=== PATIENT | female | born 2000 | race Caucasian/White ===

== ENCOUNTER 2025-07-15 09:32 | Outpatient (AMB) | payer OTHER, SELFPAY ==
--- OUTSIDE RECORDS SUMMARY | 2025-07-15 09:34 | XMS_ITS | Clinical Summary ---
Author Organization [facility] Address [address] [place] [address] Care Team Providers Care Md Pediatric Allergist Name Role Phone María Deng PA-C Primary Care Provider Source Comments PLEASE NOTE, if this patient is a minor, it may be UNLAWFUL to discuss sensitive information that is contained in these records (such as FAMILY PLANNING, MENTAL HEALTH or SUBSTANCE ABUSE) with the minor patient's parent or other person without the patient's specific authorization.[facility] Allergies No known active allergies Medications PNV no.159/iron/foli c acid ( VITAMIN ORAL) Take by mouth. Active Active Problems Problem Noted Date Diagnosed Date Cervical cancer screening 02/06/2025 Overview (02/06/2025): Pap 09/2021 negative Family History Medical History Relation Name Comments No Known Problems Daughter No Known Problems Mother Relation Name Status Comments Brother 1 Alive Brother 2 Alive Daughter Alive Father Mother Alive Social History Tobacco Use Types Packs/Day Years Used Date Smoking Tobacco: Never Smokeless Tobacco: Never Tobacco Cessation:Counseling Given: Not Answered Alcohol Use Standard Drinks/Week Comments Not Currently 0 (1 standard drink = 0.6 oz pur e alcohol) occasionally Social Connections Answer Date Recorded Connectedness 0 07/07/2024 Financial Resource Strain Answer Date R ecorded Financial Resource Strain 0 2020 Stress Answer Date Recorded Stress 0 08/29/2021 Physical Activity Answer Date Recorded Physical Activity 0 08/29/2021 Food Insecurity Answer Date Recorded Food 0 07/21/2024 Transportation Needs Answer Date Record ed Transportation 0 08/29/2021 Housing Stability Answer Date Recorded Housing 0 08/29/2021 Safety and Environment Answer Date Sherif rded Safety 0 08/29/2021 Utilities Answer Date Recorded Utilities 0 08/29/2021 Employment Answer Date Recorded Stress 0 07/07/2024 Comments Unknown Sex and Gender Information Value Date Recorded Sex Assigned at Female 08/29/2021 12:29 PM PDT Legal Sex Female 10:55 AM PDT Gender Identity Female 08/29/2021 12:29 PM PDT Sexual Orientation Straight 08/29/2021 12 :29 PM PDT Last Filed Vital Signs Vital Sign Reading Time Taken Comments Blood Pressure 117/68 03/28/2025 2:33 PM EDT Pulse 60 03/28/2025 2:33 PM EDT Temperature 37.2 C (99 F) 03/16/2025 3:46 PM EDT Respiratory Rate 16 03/28/2025 2:33 PM EDT Oxygen Saturation 100% 03/28/2025 2:33 PM EDT Inhaled Oxygen Concentration - - Weight 59.4 kg (131 lb) 03/28/2025 2:33 PM EDT Height 165.1 cm (5' 5 ) 03/16/2025 3:46 PM EDT Body Mass Index 21.8 03/16/2025 3:46 PM EDT Plan of Treatment Health Maintenance Due Date Last Done Comments HPV Screening 2000 Relationship Safety Screening/Counseling 2015 [id number] ( season) 2025 Imm-Influenza (#1) 2025 08/12/2013, 1 11/20/2011, 10/02/2011, Additional history exists Annual Wellness (Adult): Indicated (All Coverage) 03/16/2026 03/16/2025 Anxiety Screening 03/16/2026 03/16/2025 Tobacco Screening 03/16/2026 03/16/2025 Hypertension Screening (#1) 03/27/2028 Pap Smear 03/28/2028 03/28/2025 Cervical Cancer Screening 03/28/2030 Pap + HPV 03/28/2030 03/28/2025 Imm-DTaP/Tdap/Td (6 - Td or Tdap) 02/07/2032 02/06/2022, 07/13/2005, 2000, Additional history exists Imm-Varicella Completed 07/05/2008, 07/03/2005 Imm-HPV Completed 09/20/2012, 11/26, 10/02/2011 Alcohol and Drug Screen Completed 03/16/2025, 08/29 Depression Annual Screen Completed 03/16/2025 HIV Screening Completed 03/16/2025 Hepatitis C Screening Completed 03/16/2025 Cervical Ablation/Cold-Knife Conization Discontinued Cervical Cryotherapy Discontinued Colposcopy Discontinued Endometrial Biopsy Discontinued Excision/Leep Discontinued HPV Genotyping Discontinued Imm-Hepatitis B Discontinued Vaginal Pap Discontinued Vulvoscopy Discontinued Procedures Procedure Name Priority Date/Time Associated Diagnosis Comments THINPREP IMAGING PAP, HPV MRNA E6/E7 RFLEX HPV 16,18/45 CT/NG Routine 03/28/2025 1:53 PM EDT Screening for HPV (human papillomavirus) HIV 1/2 AG & AB W/RFLX (4TH GEN) Routine 03/16/2025 4:20 PM EDT Routine adult health maintenance HEPATITIS C AB W/RFLX HCV RNA, QT, RT PCR Routine 03/16/2025 4:20 PM EDT Routine adult health maintenance from Last 3 Months or Most Recently Relevant to Health Maintenance Results * (ABNORMAL) THINPREP IMAGING PAP, HPV MRNA E6/E7 RFLEX HPV 16,18/45 CT/NG Cervical Swab Routine (03/28/2025 1:53 PM EDT) CHLAMYDIA TRACHOMATIS RNA, TMA NOT DETECTED NOT DETECTED [employer] NEISSERIA GONORRHOEAE RNA, TMA NOT DETECTED NOT DETECTED [employer] COMMENT [employer] CLINICAL INFORMATION See Note [employer] Comment:None given LMP See Note [employer] Comment:NONE GIVEN PREV. PAP See Note [employer] Comment:NONE GIVEN PREV. BX See Note [employer] Comment:NONE GIVEN SOURCE See Note [employer] Comment:Cervix STATEMENT OF ADEQUACY See Note [employer] Comment: Satisfactory for evaluation. Endocervical/transformation zone component present. GENERAL CATEGORIZATION See Note(A) [employer] Comment:Cytology Results: Ep ithelial Cell Abnormality INTERPRETATION/RESU LT See Note(A) [employer] Comment: Atypical Squamous Cells of Undetermined Significance (ASC-US) COMMENT See Note [employer] Comment: This case could not be evaluated with computer assisted technology. The slide was manually screened according to routine procedures. FLUORESCENT LIGHTING MODEL MAKER See Note NHUNG [place] Comment: WAC, CT(ASCP) CT screening location: [address] [address] PATHOLOGIST See Note [employer] Comment: Shabnam Vivas D.O. Board Certified in Anatomic, Clinical and Cytopathology (electronic signature) Consulting Pathologist [facility] [address] [place] [id number] Pathologist Release Date/Time: 04/04/2025 02:24PM COMMENT [employer] HPV MRNA E6/E7 Detected(A ) Not Detected [employer] Comment: Methodology: Chemical Plant Operator-Mediated Amplification This assay detects E6/E7 viral messenger RNA (mRNA) from 14 high-risk HPV types (16,18,31,33,35,39,45,51,52,56,58,59,66,68). Cervical sources are required for HPV testing. If a vaginal source from a patient who has had a total hysterectomy with removal of cervix was submitted, please contact the testing laboratory for alternative testing options. For additional information, please refer to http://[employer]Rocket/faq/UYV606k6 (This link if provided for information/ educational purposes only.) Swab Cervix uteri structure / Unknown 03/28/2025 1:53 PM EDT 03/29/2025 6:46 AM EDT Narrative Wylio - 04/04/2025 2:59 PM EDT EXPLANATORY NOTE: The Pap is a screening test for cervical cancer. It is not a diagnostic test and is subject to false negative and false positive results. It is most reliable when a satisfactory sample, regularly obtained, is submitted with relevant clinical findings and history, and when the Pap result is evaluated along with historic and current clinical information. The analytical performance characteristics of this assay, when used to test SurePath(TM) specimens have been determined by [employer]. The modifications have not been cleared or approved by the FDA. This assay has been validated pursuant to the CLIA regulations and is used for clinical purposes. For additional information, please refer to https://[employer]Rocket/faq/SID091 (This link is being provided for information/ educational purposes only.) William Fragoso MD LAB - PATHOLOGY AND CYTOLOGY AM BULATORY Final Result Performing Organization Address [facility]/ZIP Co de Phone Number [facility] [address] [address], [facility] [address] [phone] * HEPATITIS C AB W/RFLX HCV RNA, QT, RT PCR Routine (03/16/2025 4:20 PM EDT) HEPATITIS C ANTIBODY NON-REACT SHAKIRA NON-REACT SHAKIRA [facility] Comment: HCV antibody was non-reactive. There is no laboratory evidence of HCV infection. In most cases, no further action is required. However, if recent HCV exposure is suspected, a test for HCV RNA (test code 67280) is suggested. For additional information please refer to http://[employer]ocket/faq/YSD71v5 (This link is being provided for informational/ educational purposes only.) Blood Blood / Unknown 03/16/2025 4 :20 PM EDT 03/16/2025 4:20 PM EDT Kellie Huntley NP LAB - BLOOD DRAW Edited Result - Final Performing Organization Address [facility] Co de Phone Number [facility] [address] [address], [facility] [address] [phone] * HIV 1/2 AG & AB W/RFLX (4TH GEN) Routine (03/16/2025 4:20 PM EDT) HIV AG/AB, 4TH GEN NON-REAC TIVE NON-REAC TIVE [facility] Comment: HIV-1 antigen and HIV-1/HIV-2 antibodies were not detected. There is no laboratory evidence of HIV infection. PLEASE NOTE: This information has been disclosed to you from records whose confidentiality may be protected by state law. If your state requires such protection, then the state law prohibits you from making any further disclosure of the information without the specific written consent of the person to whom it pertains, or as otherwise permitted by law. A general authorization for the release of medical or other information is NOT sufficient for this purpose. For additional information please refer to http://education.[employer]/faq/QBW002 (This link is being provided for informational/ educational purposes only.) The performance of this assay has not been clinically validated in patients less than 2 years old. Blood Blood / Unknown 03/16/2025 4 :20 PM EDT 03/16/2025 4:20 PM EDT us Kellie Huntley APPLIANCE SERVICE REPRESENTATIVE LAB - BLOOD DRAW Final Result [facility] [address] [address], [facility] [address] [place] [address] from Last 3 Months or Most Recently Relevant to [employer] Maintenance Insurance [employer] ([facility]) Member Subscriber Plan / Payer (Ef fective 2021-Present) Name:Jyotsna Kessler Relation to Subscriber:Self Name:Jyotsna Kessler Payer ID:[id number] Type:Indemnity Address: [address] [place] [id number] Care Teams Md Pediatric Allergist Relationship Specialty Start Date End Date María Deng PA-C [address] [place] [address] PCP - General Primary Care 11/30/24
--- OUTSIDE RECORDS SUMMARY | 2025-07-15 09:34 | XMS_ITS | Clinical Summary ---
Author Organization [facility] ity Address [address] [place] [address] Care Team Providers Care Business Services Coordinator Name Role Phone Unavailable Primary Care Provider Unavailabl e Social History Tobacco Use Types Packs/Day Years Used Date Smoking Tobacco: Never Assessed Comments Unknown Sex and Gender Information Value Date Recorded Sex Assigned at Not on file Legal Sex Female 4:56 AM EST Gender Identity Not on file Sexual Orientation Not on file Plan of Treatment Health Maintenance Due Date Last Done Comments HPV Vaccines (1 - 3-dose series) 2015 DTaP,Tdap,and Td Vaccines (1 - Tdap) 2019 Hepatitis B Vaccines (1 of 3 - 19+ 3-dose series) 2019 Cervical Cancer Screening: P ap Smear 2021 Depression Screening 10/26/2024 COVID-19 Vaccine ( - 2023-2 5 season) 2025 Influenza Vaccine (#1) 2025 HIB Vaccines Aged Out No longer eligi ble based on patient's age to complete this topic Hepatitis A Vaccines Aged Out No long er eligible based on patient's age to complete this topic IPV Vaccines Aged Out No longer eligi ble based on patient's age to complete this topic MMR Vaccines Aged Out No longer eligi ble based on patient's age to complete this topic Meningococcal ACWY Vaccine Aged Out N o longer eligible based on patient's age to complete this topic Meningococcal B Vaccine Aged Out No l onger eligible based on patient's age to complete this topic Pneumococcal Vaccine: Pediat rics (0 to 5 Years) and At-Risk Patients (6 to 49 Years) Aged Out No longer eligible b ased on patient's age to complete this topic RSV Immunization Patients Un yulisa 20 months Aged Out No longer eligible b ased on patient's age to complete this topic Varicella Vaccines Aged Out No longer eligible based on patient's age to complete this topic
[2025-07-15 09:44] VITALS: BP 94/60; PULSE 66; RESP 16; TEMP 36.8; O2SAT 98; BMI 22.0
--- NOTE | 2025-07-15 09:44 | MHC.OFFWIV ---
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 She reports that she has no symptoms of , or any other abnormal symptoms. She does have 1 child already, with no active plans for another child. However she does engage in active unprotected intercourse with her partner and is open to further pregnancies. She has a history of a molar , and has been trying to find an OBGYN provider for the last few days as she does not currently have one. [facility] Female Reproductive History Menstrual Date of last menstrual period: 05/26/25 Review of Systems Const All systems reviewed & are unremarkable except as noted in HPI and below Physical Exam Vital Signs: Last Vital Signs Temp 98.3 F 07/15/25 09:44 Pulse 66 07/15/25 09:44 Resp 16 07/15/25 09:44 BP 94/60 07/15/25 09:44 Pulse Ox 98 07/15/25 09:44 Oxygen Delivery Method Room Air 07/15/25 09:44 BMI result Body Mass Index 22.0 Const General: cooperative, healthy appearing, comfortable, no acute distress, alert, awake, Physically active and well groomed; No anxious, diaphoretic, ill appearing, intoxicated appearing, poor hygiene or tired appearing Nutritional Appearance: average body habitus Orientation/consciousness: oriented to person Limitations: no limitations Resp Effort & Inspection: normal respiratory effort Cardio Rate: regular rate GI Inspection: No Abdominal wall edema and No distended Palpation (GI): no guarding General: Yes no CVA tenderness Back/Spine/Pelvis Back: no CVA tenderness Skin Other: Good color, warm and dry Neuro General: oriented to person Psych Appearance: grossly normal Mental Status: mental status grossly normal Speech and movement: Normal speech and movement present Affect: normal affect Attitude: cooperative Thought process: Normal thought process present Insight: Good insight present (Psych) Judgement: Good judgement present (Psych) Results AMB Test Urine AMB Test Urine Negative Last Edit by Evelia Higgins CMA on 07/15/25 09:54 Results Reviewed Results Reviewed: Laboratory Last Values [facility]st Clinic Negative 07/15/25 09:53 Patient is negative test Assessment & Plan Assessment & Plan (1) Amenorrhea: Code(s): N91.2 - Amenorrhea, unspecified Plan: Advise patient to follow up with primary care, and keep trying to get in with an OBGYN, due to missed period, as well as two recent positive tests and is now negative in office today. It is possible that she has had an early loss, although there was no abnormal bleeding or vaginal discharge. She also has history of molar , and needs to follow this up further with her providers. She denies history of thyroid condition, excessive stress or exercise recently that would be the cause of missed menses. She has no symptoms at this time, but was advised to monitor for changes and to follow up emergently if any severe abdominal pain or excessive bleeding develops, or any other worrisome symptoms. Orders: Orders AMB HCG Urine Test Today Z32.02 - Encounter for test, result negative Coding Level of Care Code New Pt Level 4 (57545) Diagnoses Amenorrhea N91.2
== END 2025-07-15 10:36 | disposition home or self-care (01) ==
PROVIDERS: Visit Provider Physician Assistant Medical
DX: Z32.02 Encounter for pregnancy test, result negative (principal); N91.2 Amenorrhea, unspecified

== ENCOUNTER → 2025-07-15 09:32 | Outpatient (BNVA) | payer OTHER, SELFPAY | PROVIDERS: Visit Provider Physician Assistant Medical | DX: N91.2 Amenorrhea, unspecified (principal); Z32.02 Encounter for pregnancy test, result negative | CPT/HCPCS: 81025 ==